=== PATIENT | female | born 1960 | race Caucasian/White ===

== ENCOUNTER 2018-06-10 16:37 | Emergency (ER) | payer OTHER ==
[~2018-06-10] VITALS: Ht 172.7 cm; Wt 133.8 kg
[~2018-06-10 16:37] MED LIST: ALBU0.0912 IH; BECL0.089 INH; BUPR300T3 PO; BUPR300T70 PO; LISI10TA11 PO; LORA10TA19 PO
--- NOTE | 2018-06-10 16:41 | NUR ---
Dr. Ray evaluating patient at bedside.
--- NOTE | 2018-06-10 16:41 | NUR ---
Patient ambulated to bed 9. RN evaluating patient at bedside.
--- NOTE | 2018-06-10 16:43 | NUR ---
58 Y/O F W/C/O "ASTHMA ATTACK, MY INSURANCE WONT FILL MY PERSCRIPTIONS SO THATS WHY I AM HERE. I CAN'T GO THIS LONG WITHOUT MY INHALERS." PT DENIES N/V/D; SKIN IS INTACT, PINK/WARM/DRY; AAOX4, PERRL, WITH EVEN AND STEADY GAIT; LUNGS WHEEZING BL, BREATHING LABORED; HR EVEN AND REGULAR, BL PERIPHERAL PULSES PRESENT; BS ACTIVE X4, NO TENDERNESS TO PALPATION, NO HEPATOSPLENOMEGALLY PALPATED, RESONANT TO PERCUSSION; PT DENIES ANY FEVER, CP, SOB, AT THIS TIME; PT STATES 0/10 PAIN AT THIS TIME; VSS; PATIENT POSITIONED FOR COMFORT; HOB ELEVATED; BEDRAILS UP X2; BED DOWN. ER MD AT BEDSIDE
--- NOTE | 2018-06-10 16:43 | NUR ---
Note undone in EDM - 06/10/18 at 1655 by KINDRA 58 Y/O F W/C/O "ASTHMA ATTACK, MY INSURANCE WONT FILL MY PERSCRIPTIONS SO THATS WHY I AM HERE. I CAN'T GO THIS LONG WITHOUT MY INHALERS." PT DENIES N/V/D; SKIN IS INTACT, PINK/WARM/DRY; AAOX4, PERRL, WITH EVEN AND STEADY GAIT; LUNGS WHEEZING BL, BREATHING LABORED; HR EVEN AND REGULAR, BL PERIPHERAL PULSES PRESENT; BS ACTIVE X4, NO TENDERNESS TO PALPATION, NO HEPATOSPLENOMEGALLY PALPATED, RESONANT TO PERCUSSION; PT DENIES ANY FEVER, CP, SOB, OR COUGH AT THIS TIME; PT STATES 0/10 PAIN AT THIS TIME; VSS; PATIENT POSITIONED FOR COMFORT; HOB ELEVATED; BEDRAILS UP X2; BED DOWN. ER MD AT BEDSIDE
[2018-06-10 16:45] VITALS: BP 112/97
[2018-06-10] MEDS: hydrOXYzine HCL 25 MG TAB PO ONE (16:53)
[2018-06-10] MEDS: methylPREDNISolone SS 125 MG in WATER STERILE 2 ML IM ONE (16:54)
--- NOTE | 2018-06-10 16:55 | NUR ---
Breathing treatment administered by respiratory therapist at bedside.
[2018-06-10] MEDS: ALBUTEROL SULFATE/IPRATROPIU 3 ML SOL IH ONE (16:57)
[2018-06-10] MEDS: CLINDAMYCIN 600 MG/4 ML VIAL IM ONE (16:57)
[2018-06-10] MEDS ORDERED: AMLO10TA PO (16:58)
--- NOTE | 2018-06-10 16:58 | NUR ---
ADMITTING DX: SOB HX: ASTHMA LOC AWAKE AND ALERT RESPONSIVE SITTING ON GURNEY EDUCATION PROVIDED TO PATIENT WITH ACKNOWLEDGEMENT ON [facility]N THERAPY RESPIRATORY DRUG AND PEAK FLOW METER ASSESSMENT [facility] THERAPY GIVEN ORDERED ENCOURAGED PATIENT FOR INTERMITTENT DEEP BREATHNG AND COUGH TOLERATED THERAPY WELL WITHOUT INCIDENT PEAK FLOW before 210 l/m after 270 l/m
[2018-06-10] MEDS ORDERED: FLUT1AER IH (17:01)
[2018-06-10] MEDS ORDERED: CETI-24 PO (17:01)
--- NOTE | 2018-06-10 17:11 | NUR ---
CALLED FRANCIE IN [facility] TO LET HER KNOW PT READY FOR X-RAY
--- NOTE | 2018-06-10 17:17 | NUR ---
PT TAKEN TO X RAY VIA W/C ACCOMPANIED BY [email or web address].
--- NOTE | 2018-06-10 17:21 | NUR ---
Patient returned from XRAY. RN re-evaluating patient at bedside.
--- NOTE | 2018-06-10 17:36 | NUR ---
Dr. Ray reevaluating patient at bedside.
[2018-06-10 17:40] VITALS: BP 125/66
--- NOTE | 2018-06-10 17:42 | NUR ---
Patient discharged with v/s stable. Written and verbal after care instructions given and explained. Patient alert, oriented and verbalized understanding of instructions. Ambulatory with steady gait. All questions addressed prior to discharge. ID band removed. Patient advised to follow up with PMD. Rx of ALBUTEROL, ATROVENT, PREDNISONE, PROMETHAZINE given. Patient educated on indication of medication including possible reaction and side effects. Opportunity to ask questions provided and answered.
== END 2018-06-10 17:42 | disposition home or self-care (01) ==
LOC: MED 16:37
DX: J44.1 Chronic obstructive pulmonary disease with (acute) exacerbation (principal); I10 Essential (primary) hypertension; F12.10 Cannabis abuse, uncomplicated; Z88.1 Allergy status to other antibiotic agents; Z79.899 Other long term (current) drug therapy
CPT/HCPCS: 71046; 81002; 81025; 94640; 96372; 99284; J2930; J3490; J7620

== ENCOUNTER 2018-08-10 12:43 | Emergency (ER) | payer OTHER ==
[~2018-08-10] VITALS: Ht 172.7 cm; Wt 134.3 kg
[~2018-08-10 12:43] MED LIST changes: +AMLO10TA PO; +CETI-24 PO; +FLUT1AER IH
[2018-08-10 12:50] VITALS: BP 105/67
--- NOTE | 2018-08-10 12:50 | NUR ---
PT AMBULATED TO ER BED 06
--- NOTE | 2018-08-10 13:00 | NUR ---
recheck for worsening lt eye abrasion per pt seen yesterday hx; asthma, htn rx; lisinopril, ventolin
[2018-08-10 13:45] VITALS: BP 100/70
--- NOTE | 2018-08-10 13:45 | NUR ---
Patient discharged with v/s stable. Written and verbal after care instructions given and explained. Patient alert, oriented and verbalized understanding of instructions. Ambulatory with steady gait. All questions addressed prior to discharge. ID band removed. Patient advised to follow up with PMD. Rx of ciprofloxacin given. Patient educated on indication of medication including possible reaction and side effects. Opportunity to ask questions provided and answered.
== END 2018-08-10 13:45 | disposition home or self-care (01) ==
LOC: MED 12:43
DX: S05.02XD Injury of conjunctiva and corneal abrasion without foreign body, left eye, subsequent encounter (principal); J45.909 Unspecified asthma, uncomplicated; I10 Essential (primary) hypertension; Z88.1 Allergy status to other antibiotic agents; Z79.899 Other long term (current) drug therapy; Z79.811 Long term (current) use of aromatase inhibitors; X58.XXXD Exposure to other specified factors, subsequent encounter
CPT/HCPCS: 99283

== ENCOUNTER 2018-08-12 15:40 | Emergency (ER) | payer OTHER ==
[~2018-08-12] VITALS: Ht 172.7 cm; Wt 134.3 kg
[2018-08-12 15:55] VITALS: BP 118/79
[2018-08-12] MEDS ORDERED: ALBUTEROL SULFATE/IPRATROPIU 3 ML SOL IH ONE (18:25)
[2018-08-12 18:41] VITALS: BP 120/89
== END 2018-08-12 18:42 | disposition home or self-care (01) ==
LOC: MED 15:40
DX: H10.9 Unspecified conjunctivitis (principal); J45.901 Unspecified asthma with (acute) exacerbation; I10 Essential (primary) hypertension; Z88.1 Allergy status to other antibiotic agents; Z79.899 Other long term (current) drug therapy; S05.02XD Injury of conjunctiva and corneal abrasion without foreign body, left eye, subsequent encounter; X58.XXXD Exposure to other specified factors, subsequent encounter
CPT/HCPCS: 99283; J7620; 94640

== ENCOUNTER 2018-11-05 10:25 | Emergency (ER) | payer OTHER ==
[~2018-11-05] VITALS: Ht 172.7 cm; Wt 140.2 kg
[2018-11-05 11:03] VITALS: BP 122/80
--- NOTE | 2018-11-05 13:42 | NUR ---
PER ADMITTING PT LWBS AT THIS TIME
== END 2018-11-05 13:42 | disposition left against medical advice (07) ==
LOC: MED 10:25
DX: R05 Cough (principal); H92.03 Otalgia, bilateral; Z53.21 Procedure and treatment not carried out due to patient leaving prior to being seen by health care provider

== ENCOUNTER 2018-12-16 22:33 | Emergency (ER) | payer OTHER ==
[~2018-12-16] VITALS: Ht 172.7 cm; Wt 137.9 kg
[2018-12-16 22:44] VITALS: BP 136/88
--- NOTE | 2018-12-16 22:44 | NUR ---
TO BED # 09 AMBULATORY, REPORT GIVEN TO YANG PRICE
--- NOTE | 2018-12-16 22:59 | NUR ---
PT TO ED WITH C/O L KNEE PAIN S/P FALL X 2MOS AGO. NO OBVIOUS DEFORMITY NOTED. NO APPRENT SWELLING NOTED TO KNEE. PT IS AMBULATORY WITH STEADY GAIT. PT ALSO REQUESTING MEDICATION REFILLS FOR HTN AND ASTHMA INHALER. PT PLACED INTO BED, PENDING MD DIEZ.
[2018-12-16 23:10] VITALS: BP 136/88
--- NOTE | 2018-12-16 23:11 | NUR ---
Patient discharged with v/s stable. Written and verbal after care instructions given and explained. Patient alert, oriented and verbalized understanding of instructions. Ambulatory with steady gait. All questions addressed prior to discharge. ID band removed. Patient advised to follow up with PMD. Rx of AMLODIPINE, LISINOPRIL, ALBUTEROL given. Patient educated on indication of medication including possible reaction and side effects. Opportunity to ask questions provided and answered.
== END 2018-12-16 23:11 | disposition home or self-care (01) ==
LOC: MED 22:33
DX: M25.562 Pain in left knee (principal); Z76.0 Encounter for issue of repeat prescription; J45.909 Unspecified asthma, uncomplicated; I10 Essential (primary) hypertension; Z79.899 Other long term (current) drug therapy; Z88.1 Allergy status to other antibiotic agents
CPT/HCPCS: 99283